=== PATIENT | male | born 1970 | race Caucasian/White ===

== ENCOUNTER 2019-06-30 15:47 | Emergency (ER) | payer SELFPAY ==
[~2019-06-30] VITALS: Ht 167.6 cm; Wt 98.0 kg
[2019-06-30 15:58] VITALS: BP 137/91
--- NOTE | 2019-06-30 17:00 | NUR ---
Patient discharged to home in stable condition. Written and verbal after care instructions given. Patient verbalizes understanding of instruction.
== END 2019-06-30 17:27 | disposition home or self-care (01) ==
LOC: ER 15:53
DX: L72.3 Sebaceous cyst (principal); L08.9 Local infection of the skin and subcutaneous tissue, unspecified; L02.32 Furuncle of buttock; E11.65 Type 2 diabetes mellitus with hyperglycemia; I10 Essential (primary) hypertension; E78.00 Pure hypercholesterolemia, unspecified